=== PATIENT | female | born 2000 | race Caucasian/White ===

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

== ENCOUNTER 2022-03-07 16:31 | Emergency (ER) | payer MEDICAID, SELFPAY ==
[2022-03-07 16:54] VITALS: BP 93/60; PULSE 126; RESP 16; TEMP 38.6; O2SAT 95; BMI 30.9
--- NOTE | 2022-03-07 18:16 | XRR_ITS ---
PROCEDURE INFORMATION: Exam: XR Chest Exam date and time: 03/07/2022 6:20 PM Age: 22 years old Clinical indication: Fever TECHNIQUE: Imaging protocol: Radiologic exam of the chest. Views: 1 view. COMPARISON: CR XR chest 2V* [id number] 03/10/2021 12:14 AM FINDINGS: Lungs: Unremarkable. No consolidation. Pleural spaces: Unremarkable. No pleural effusion. No pneumothorax. Heart/Mediastinum: Unremarkable. No cardiomegaly. Bones/joints: Unremarkable. XR/XR chest 1V portable [id number] IMPRESSION: No acute findings.
--- NOTE | 2022-03-07 18:17 | W.ED.GENADLT ---
HPI - General Adult General: Chief complaint: General Medical Stated complaint: strip throat, weakness Time Seen by Provider: 03/07/22 18:09 Source: patient Mode of arrival: ambulatory Limitations: no limitations History of Present Illness: 22-year-old female who states that she has had cough fever sore throat over the last 3 days. She is febrile here 1-1.5 should not take any meds for fever she states she had some mild shortness of breath as well. Denies any dysuria denies any vomiting or diarrhea she denies any worsening improving factors. Associated symptoms: Deny chest pain, headache(s), nausea, rash or vomiting Review of Systems Const: Reports: fever(s), chills and body aches Eyes: Denies: blurry vision or eye discomfort ENMT: Reports: throat pain Card: Denies: chest pain Resp: Reports: non-productive cough GI: Denies: abdominal pain, nausea, vomiting or diarrhea : Denies: dysuria Musc: Denies: neck pain or back pain Skin/Breast: Denies: rash Neuro: Denies: headache(s) Psych: Denies: depression Marino/Lymph: Denies: easy bruising All/Imm: Denies: urticaria PFSH ED PFSH: Surgical History Status post laparoscopic cholecystectomy (10/07/20) Social History Second hand smoke exposure: No Alcohol intake: never Desire information about alcohol rehabilitation?: No Desire information about substance/drug rehabilitation?: No Female Reproductive History: Date of last menstrual period: 04/15/19 Physical Exam Const: COMMON NORMALS: no acute distress, patient oriented x3 and healthy appearing HENMT: COMMON NORMALS: normocephalic and atraumatic HEAD & SCALP: normocephalic and atraumatic MOUTH: Normal oral and palatal mucosa present THROAT: posterior oropharynx normal, tonsils normal and uvula midline Eye: COMMON NORMALS: Equal, round and reactive pupils present and EOMs intact bilaterally PUPIL: Yes Equal, round and reactive pupils present Neck/C-Spine: COMMON NORMALS: full ROM and supple Chest: COMMONS NORMALS: normal inspection of the chest and normal palpation of entire chest wall Resp: COMMON NORMALS: normal respiratory effort, No retractions, No use of accessory muscles and clear to auscultation bilaterally AUSCULTATION: clear to auscultation bilaterally Cardio: COMMON NORMALS: regular rate, regular rhythm and No murmurs present (Cardio) RATE: regular rate RHYTHM: regular rhythm GI: COMMON NORMALS: Normal to inspection, nondistended, normoactive bowel sounds present, Soft to palpation, non-tender and no masses PALPATION: Yes Soft to palpation Extremity: COMMON NORMALS: normal to inspection and full ROM Neuro: COMMON NORMALS: patient oriented x3, moves all extremities and no focal motor deficits Psych: COMMON NORMALS: mental status grossly normal, Normal thought process present and cooperative THOUGHT PROCESS: Normal thought process present Skin: COMMON NORMALS: no rashes or lesions noted and no wounds GENERAL SKIN EXAM: no rashes or lesions noted Course Vital Signs: Vital signs: Vital Signs Temperature 101.5 F H 03/07/22 16:54 Pulse Rate 96 03/07/22 19:20 Respiratory Rate 18 03/07/22 19:20 Blood Pressure 119/73 03/07/22 19:20 Pulse Oximetry 94 03/07/22 19:20 Oxygen Delivery Me thod 03/07/22 19:20 MDM - General Adult Medical Decision Making Patient presents here with cough fever loss of throat patient did test positive for the flu. She is well-appearing here she has no throat swelling x-ray is clear she is stable for discharge. Lab Data 03/07/22 18:37 03/07/22 18:37 Radiology Impressions Chest X-Ray 03/07/22 18:16 IMPRESSION: No acute findings. Laboratory Results WBC 11.1 10^3/uL (4.5-13.0) 03/07/22 18:37 RBC 5.63 10^6/uL (4.1-5.3) H 03/07/22 18:37 Hgb 14.3 g/dL (11.5-15.3) 03/07/22 18:37 Hct 44.9 % (37.0-47.0) 03/07/22 18:37 MCV 79.8 fl (81-99) L 03/07/22 18:37 MCH 25.4 pg (28.0-34.0) L 03/07/22 18:37 MCHC 31.8 g/dL (30.0-36.0) 03/07/22 18:37 RDW 12.1 % (12.1-15.1) 03/07/22 18:37 Plt Count 152 10^3/cmm (130-400) 03/07/22 18:37 MPV 11.0 fL (7.4-10.4) H 03/07/22 18:37 Neut % (Auto) 84.0 % 03/07/22 18:37 Lymph % (Auto) 5.7 % 03/07/22 18:37 [place] % (Auto) 9.6 % 03/07/22 18:37 Eos % (Auto) 0.0 % 03/07/22 18:37 Baso % (Auto) 0.3 % 03/07/22 18:37 Neut # (Auto) 9.32 10^3/uL (1.8-8.0) H 03/07/22 18:37 Lymph # (Auto) 0.6 10^3/uL (1.5-6.5) L 03/07/22 18:37 [place] # (Auto) 1.1 10^3/uL (0.2-0.9) H 03/07/22 18:37 Eos # (Auto) 0.0 10^3/uL (0.0-0.8) 03/07/22 18:37 Baso # (Auto) 0.0 10^3/uL (0.0-0.1) 03/07/22 18:37 Nucleated RBC % (auto) 0 % 03/07/22 18:37 Nucleated RBCs # 0.0 /100WBC 03/07/22 18:37 Sodium 128 mmol/L (136-145) L 03/07/22 18:37 Potassium 3.3 mmol/L (3.5-5.1) L 03/07/22 18:37 Chloride 95 mmol/L (98-107) L 03/07/22 18:37 Carbon Dioxide 21 mmol/L (22-29) L 03/07/22 18:37 Anion Gap 15.3 (5-19) 03/07/22 18:37 BUN 13 mg/dL (6-20) 03/07/22 18:37 Creatinine 0.8 mg/dL (0.5-0.9) 12/12/22 18:37 GFR Calculation 91.4 mL/min (90-130) 03/07/22 18:37 Glucose 120 mg/dL (65-115) H 03/07/22 18:37 Calculated Osmolality 267 mOsm/kg (285-295) L 03/07/22 18:37 Calcium 9.1 mg/dL (8.5-10.5) 03/07/22 18:37 Total Bilirubin 0.7 mg/dL (0.15-1.2) 03/07/22 18:37 AST 19 U/L (0-32) 03/07/22 18:37 ALT 15 U/L (0-33) 03/07/22 18:37 Alkaline Phosphatase 88 U/L (35-105) 03/07/22 18:37 Total Protein 7.4 g/dL (6.6-8.7) 03/07/22 18:37 Albumin 4.1 g/dL (3.5-5.2) 03/07/22 18:37 Globulin 3.3 g/dL (1.3-4.6) 03/07/22 18:37 Influenza Type A Ag Positive (Negative) H 03/07/22 18:37 Influenza Type B Ag Negative (Negative) 03/07/22 18:37 SARS-CoV-2 Ag (Rapid) Negative (Negative) 03/07/22 18:37 Group A Strep Rapid Negative (Negative) 03/07/22 18:37 Discharge Plan Discharge Patient Disposition: Home Clinical Impression: Influenza Condition: Stable Prescriptions: No Action ondansetron 4 mg tablet,disintegrating 4 mg PO Q8H PRN (Reason: nausea and vomiting) 7 Days Qty: 21 0RF Mirena 20 mcg/24 hours (6 yrs) 52 mg Intrauterine Device See Rx Instructions .ROUTE .COMPLEX Rx Instructions: intrauterinely DIRECTED diclofenac sodium 75 mg tablet,delayed release (DR/EC) 75 mg PO BID Qty: 20 0RF Discharge Orders: Discharge ED (Routine); Ordered 03/07/22 Ordered By: Sameera Soares Referrals: Sharif Sumner MD [Primary Care Provider] - 1-3 days Discharge Diet: Advance as tolerated Discharge Activity: Resume usual activity Patient Instructions: Influenza (ED) Coding Level of Care Code ED Retention Specialist for Chg Fwd Exam Comprehensive
[2022-03-07 18:27] VITALS: BP 99/86; PULSE 102; RESP 18; O2SAT 95
[2022-03-07] MEDS: sodium chloride 0.9% 1,000 ML 999 ML IV (18:31)
[2022-03-07] MEDS: ketorolac 30 mg/mL INJ IVP (18:31)
[2022-03-07 18:58] LABS: Rapid Strep A Test Negative (Negative)
[2022-03-07 19:00] LABS: Basophils % 0.3 %; Hematocrit 44.9 % (37.0-47.0); Hemoglobin 14.3 g/dL (11.5-15.3); Lymphocytes # 0.6 10^3/uL (1.5-6.5); Lymphocytes % 5.7 %; Mean Corpuscular HGB Conc 31.8 g/dL (30.0-36.0); Mean Corpuscular Hemoglobin 25.4 pg (28.0-34.0); Mean Corpuscular Volume 79.8 fl (81-99); Monocytes # 1.1 10^3/uL (0.2-0.9); Monocytes % 9.6 %; Neutrophils # 9.32 10^3/uL (1.8-8.0); Nucleated Red Blood Cells % 0 %; Platelet Count 152 10^3/cmm (130-400); Red Blood Count 5.63 10^6/uL (4.1-5.3); Red Cell Distribution Width 12.1 % (12.1-15.1); White Blood Count 11.1 10^3/uL (4.5-13.0)
[2022-03-07 19:01] LABS: Influenza A by IFA Positive (Negative); Influenza B by IFA Negative (Negative)
[2022-03-07 19:04] LABS: SARS Covid-2 Antigen Negative (Negative)
[2022-03-07 19:05] LABS: Alanine Aminotransferase 15 U/L (0-33); Albumin Level 4.1 g/dL (3.5-5.2); Alkaline Phosphatase 88 U/L (35-105); Anion Gap 15.3 (5-19); Aspartate Amino Transferase 19 U/L (0-32); Blood Urea Nitrogen 13 mg/dL (6-20); Calcium 9.1 mg/dL (8.5-10.5); Carbon Dioxide 21 mmol/L (22-29); Chloride 95 mmol/L (98-107); Globulin 3.3 g/dL (1.3-4.6); Glomerular Filtration Rate 91.4 mL/min (90-130); Glucose 120 mg/dL (65-115); Osmolality Calculated 267 mOsm/kg (285-295); Potassium 3.3 mmol/L (3.5-5.1); Sodium 128 mmol/L (136-145); Total Bilirubin 0.7 mg/dL (0.15-1.2); Total Protein 7.4 g/dL (6.6-8.7)
[2022-03-07 19:20] VITALS: BP 119/73; PULSE 96; RESP 18; O2SAT 94
== END 2022-03-07 20:06 | disposition home or self-care (01) ==
PROVIDERS: Physician Assistant; Emergency Provider Emergency Medicine; PCP Family Medicine
DX: J11.1 Influenza due to unidentified influenza virus with other respiratory manifestations (principal); Z20.822 Contact with and (suspected) exposure to COVID-19
CPT/HCPCS: 71045; 80053; 85025; 87081; 87426; 87804; 87880; 96361; 96374; 99284; J1885; J7030

== ENCOUNTER 2022-05-03 22:34 | Emergency (ER) | payer OTHER, SELFPAY ==
[2022-05-03 22:58] VITALS: BP 123/82; PULSE 78; RESP 17; TEMP 36.7; O2SAT 99; BMI 31.8
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
== END 2022-05-03 23:30 | disposition home or self-care (01) ==
PROVIDERS: Emergency Provider Emergency Medicine; PCP Family Medicine
DX: O9A.211 Injury, poisoning and certain other consequences of external causes complicating pregnancy, first trimester (principal); S30.1XXA Contusion of abdominal wall, initial encounter; Z3A.01 Less than 8 weeks gestation of pregnancy; Y04.2XXA Assault by strike against or bumped into by another person, initial encounter; O99.331 Smoking (tobacco) complicating pregnancy, first trimester; F17.210 Nicotine dependence, cigarettes, uncomplicated; Y99.0 Civilian activity done for income or pay
CPT/HCPCS: 99283

== ENCOUNTER → 2022-08-17 10:43 | Outpatient (BNVA) | payer MEDICAID, SELFPAY | PROVIDERS: PCP Family Medicine; Visit Provider Obstetrics & Gynecology | DX: Z34.82 Encounter for supervision of other normal pregnancy, second trimester (principal); Z3A.00 Weeks of gestation of pregnancy not specified | CPT/HCPCS: 81000 ==

== ENCOUNTER 2022-08-26 14:37 | Outpatient (CLI) | payer MEDICAID, SELFPAY ==
--- NOTE | 2022-08-26 | US_ITS ---
WS: [id number] ULTRASOUND OB COMPLETE TECHNIQUE: Complete ultrasound. CLINICAL INFORMATION: ANATOMY COMPARISON: None. FINDINGS: Cervix is long and closed measuring 3.2 cm Single interuterine gestation is identified with vertex presentation. Placenta is anterior and posterior fundal. Placenta grade 0. Normal amniotic fluid volume. cardiac activity: 150 BPM. AGA: 23 weeks 0 days KATELYNN by ultrasound: December 23, 2022 Estimated weight: 553 g; 1 lb. 4 oz. BDP: 5.5 cm = 22 weeks 6 days HC: 20.7 cm = 22 weeks 6 days AC: 18.3 cm = 23 weeks 1 day FEMUR LENGTH: 3.9 cm = 22 weeks 6 days HUMERAL LENGTH: 3.9 cm = 23 weeks 4 days Anatomic survey: profile, nose, and lips not visualized due to position. Anatomic survey is otherwise normal. Normal stomach. Kidneys and bladder are normal. Normal 3 vessel cord. Normal 3 vessel cord insertion. Normal 4 chamber heart. Normal spine. Intracranial contents are normal. Normal posterior fossa and cisterna magna. US/US OB >= 14 weeks fetus [id number] IMPRESSION: 1. Single intrauterine with visualized cardiac activity. AGA 23 week s 0 days with KATELYNN December 23, 2022. 2. Cervix is long and closed. 3. Placenta is fundal. No evidence of abruption or previa. 4. profile, nose, and lips not visualized due to position. Conside r follow-up for additional attempt 5. anatomic survey is otherwise normal. 6. Normal amniotic fluid volume.
== END 2022-08-26 14:38 | disposition home or self-care (01) ==
PROVIDERS: PCP Family Medicine; Visit Provider Obstetrics & Gynecology
DX: Z34.82 Encounter for supervision of other normal pregnancy, second trimester (principal); Z3A.23 23 weeks gestation of pregnancy
CPT/HCPCS: 76805

== ENCOUNTER → 2022-09-14 09:45 | Outpatient (BNVA) | payer MEDICAID, SELFPAY | PROVIDERS: PCP Family Medicine; Visit Provider Obstetrics & Gynecology | DX: Z34.90 Encounter for supervision of normal pregnancy, unspecified, unspecified trimester (principal) | CPT/HCPCS: 80307; 81000; 82950; 85027; 86592; 86762; 86803; 86850; 86900; 87086; 87340; 87806 ==

== ENCOUNTER → 2022-09-28 14:37 | Outpatient (BNVA) | payer MEDICAID, SELFPAY | PROVIDERS: PCP Family Medicine; Visit Provider Obstetrics & Gynecology | DX: Z34.80 Encounter for supervision of other normal pregnancy, unspecified trimester (principal); Z3A.00 Weeks of gestation of pregnancy not specified | CPT/HCPCS: 81000 ==

== ENCOUNTER → 2022-10-12 16:20 | Outpatient (BNVA) | payer MEDICAID, SELFPAY | PROVIDERS: PCP Family Medicine; Visit Provider Obstetrics & Gynecology | DX: Z34.80 Encounter for supervision of other normal pregnancy, unspecified trimester (principal); Z3A.00 Weeks of gestation of pregnancy not specified | CPT/HCPCS: 81000 ==

== ENCOUNTER 2022-10-16 19:05 | Outpatient (CLI) | payer MEDICAID, SELFPAY ==
[2022-10-16] VITALS (41 sets, daily range): BP systolic 107–126; BP diastolic 63–81; PULSE 72–95; RESP 16; TEMP 35.9; O2SAT 96–99; BMI 37.2
[2022-10-16 19:48] LABS: Bilirubin Urine 1+ (Negative); Blood Urine Neg (Negative); Glucose Urine UA Norm (Normal); Ketones Urine 2+ (Negative); Leukocyte Esterase Urine Trace (Negative); Nitrate Urine Negative (Negative); Protein Urine Trace (Negative); Urine Appearance Cloudy (CLEAR); Urine Color Yellow (Yellow); Urobilinogen Urine 1 mg/dL (Negative); pH Urine 5 (5-7)
[2022-10-16 19:50] LABS: Bacteria Urine 1+ /hpf; RBC Urine 0-4 /hpf (0-2)
[2022-10-16 20:59] LABS: Basophils % 0.1 %; Eosinophils # 0.1 10^3/uL (0.0-0.8); Eosinophils % 0.6 %; Hemoglobin 12.1 g/dL (11.5-15.3); Lymphocytes % 20.5 %; Mean Corpuscular HGB Conc 31.8 g/dL (30.0-36.0); Mean Corpuscular Hemoglobin 25.4 pg (28.0-34.0); Mean Corpuscular Volume 79.7 fl (81-99); Mean Platelet Volume 10.1 fL (7.4-10.4); Monocytes # 0.4 10^3/uL (0.2-0.9); Monocytes % 3.9 %; Neutrophils % 74.6 %; Nucleated Red Blood Cells % 0 %; Platelet Count 198 10^3/cmm (130-400); Red Blood Count 4.77 10^6/uL (4.1-5.3); Red Cell Distribution Width 12.4 % (12.1-15.1); White Blood Count 9.9 10^3/uL (4.5-13.0)
[2022-10-16] MEDS: aluminum-mag hydrox-simethicon 30 ML, sucralfate oral liq 1 GM PO (21:01)
[2022-10-16 21:14] LABS: Alanine Aminotransferase 16 U/L (0-33); Albumin Level 3.3 g/dL (3.5-5.2); Alkaline Phosphatase 155 U/L (35-105); Anion Gap 14.6 (5-19); Aspartate Amino Transferase 13 U/L (0-32); Blood Urea Nitrogen 5 mg/dL (6-20); Calcium 8.6 mg/dL (8.5-10.5); Carbon Dioxide 22 mmol/L (22-29); Chloride 101 mmol/L (98-107); Globulin 2.9 g/dL (1.3-4.6); Glomerular Filtration Rate 157.3 mL/min (90-130); Glucose 96 mg/dL (65-115); Osmolality Calculated 275 mOsm/kg (285-295); Potassium 3.6 mmol/L (3.5-5.1); Sodium 134 mmol/L (136-145); Total Bilirubin 0.3 mg/dL (0.15-1.2); Total Protein 6.2 g/dL (6.6-8.7)
[2022-10-16] MEDS: lactated ringers 1,000 ML 999 ML IV (22:01)
== END 2022-10-16 23:03 | disposition home or self-care (01) ==
LOC: OPOB 19:09 → OBGYN 19:14
PROVIDERS: PCP Family Medicine; Visit Provider Obstetrics & Gynecology
DX: O26.899 Other specified pregnancy related conditions, unspecified trimester (principal); R10.9 Unspecified abdominal pain; Z3A.00 Weeks of gestation of pregnancy not specified
CPT/HCPCS: 36415; 59025; 80053; 81001; 85025; 99211; J7120

== ENCOUNTER → 2022-11-09 10:39 | Outpatient (BNVA) | payer MEDICAID, SELFPAY | PROVIDERS: PCP Family Medicine; Visit Provider Obstetrics & Gynecology | DX: Z34.80 Encounter for supervision of other normal pregnancy, unspecified trimester (principal); Z3A.00 Weeks of gestation of pregnancy not specified | CPT/HCPCS: 81000 ==

== ENCOUNTER → 2022-11-16 09:36 | Outpatient (BNVA) | payer MEDICAID, SELFPAY | PROVIDERS: PCP Family Medicine; Visit Provider Obstetrics & Gynecology | DX: Z34.93 Encounter for supervision of normal pregnancy, unspecified, third trimester (principal); Z3A.36 36 weeks gestation of pregnancy | CPT/HCPCS: 76816 ==

== ENCOUNTER → 2022-11-23 10:00 | Outpatient (BNVA) | payer MEDICAID, SELFPAY | PROVIDERS: PCP Family Medicine; Visit Provider Obstetrics & Gynecology | DX: Z34.80 Encounter for supervision of other normal pregnancy, unspecified trimester (principal); Z3A.00 Weeks of gestation of pregnancy not specified | CPT/HCPCS: 81000; 87081 ==

== ENCOUNTER → 2022-11-30 09:36 | Outpatient (BNVA) | payer MEDICAID, SELFPAY | PROVIDERS: PCP Family Medicine; Visit Provider Nurse Practitioner Women's Health | DX: Z34.80 Encounter for supervision of other normal pregnancy, unspecified trimester (principal) | CPT/HCPCS: 81000 ==

== ENCOUNTER → 2022-12-07 09:11 | Outpatient (BNVA) | payer MEDICAID, SELFPAY | PROVIDERS: PCP Family Medicine; Visit Provider Obstetrics & Gynecology | DX: Z34.80 Encounter for supervision of other normal pregnancy, unspecified trimester (principal) | CPT/HCPCS: 81000 ==

== ENCOUNTER 2022-12-14 07:19 | Inpatient (IN) | payer MEDICAID, SELFPAY ==
[2022-12-14] VITALS (65 sets, daily range): BP systolic 104–136; BP diastolic 55–90; PULSE 52–98; TEMP 35.9–36.6; O2SAT 97–99; BMI 39.8
[2022-12-14 08:43] LABS: Basophils % 0.3 %; Eosinophils # 0.1 10^3/uL (0.0-0.8); Eosinophils % 0.9 %; Lymphocytes # 2.2 10^3/uL (1.5-6.5); Mean Corpuscular HGB Conc 30.9 g/dL (30-55); Mean Corpuscular Hemoglobin 23.2 pg (27-33); Mean Corpuscular Volume 75.3 fl (85-98); Monocytes # 0.4 10^3/uL (0.2-0.9); Monocytes % 4.6 %; Neutrophils # 6.73 10^3/uL (1.8-8.0); Neutrophils % 70.9 %; Nucleated Red Blood Cells % 0 %; Platelet Count 218 10^3/cmm (157-399); Red Blood Count 4.65 10^6/uL (3.85-5.65); Red Cell Distribution Width 13.4 % (12.1-15.1); White Blood Count 9.51 10^3/uL (4.5-13.0)
[2022-12-14] MEDS: dextrose 5%-lactated ringers 1,000 ML 125 ML IV ×2 (08:44→21:33)
[2022-12-14] MEDS: oxytocin 30 UNIT/500 ML BAG IV (08:54)
--- NOTE | 2022-12-14 09:15 | PM.OBGYHP ---
Providers/Chief Complaint Admitting Physician: Edy Campoverde MD Primary Care Provider: Sharif Sumner MD Chief Complaint: IOL HPI ROLL ON MAN History of Present Illness 22 y.o. EDC December 21, 2022 by LMP, c/w early ultrasound done at [facility] At 39 w 0 d No complications Admitted for elective induction of labor No c/o + active movements POBHx: x two, uncomplicated; 4 and 6 y.o. PMHx: none PSHx: laparoscopic cholecystectomy Meds: vitamins NKDA Present Details : 3 Para: 2 Labs Rubella: Non-Immune RPR: Negative GBS: Negative Medications/Allergies Home Medications Medication Instructions Recorded Confirmed Last Taken Type docosahexaenoic acid 200 mg 1 mg PO DAILY 08/16/22 12/14/22 12/12/22 07:00 History capsule ( DHA) bupropion HCl 100 mg tablet,12 hr 100 mg PO DAILY #30 tabs 11/21/22 12/14/22 12/12/22 07:00 Rx sustained-release (Wellbutrin SR) Allergies Allergy/AdvReac Type Severity Reaction Status Date / Time No Known Allergies Allergy Verified 12/07/22 09:06 PFSH ROLL ON MAN PFSH: Surgical History Status post laparoscopic cholecystectomy (10/07/20) Family History Grandmother Ovarian cancer maternal Mother Thyroid condition Stroke TIA - unsure Father Hypertension Grandfather Diabetes maternal Denies family history of Colon cancer Heart disease Hyperlipidemia Breast cancer History History History 3 Term 2 0 Miscarriages/Ectopic 0 Living Children 2 Care KATELYNN Calculator Estimated Delivery Date Method Current WG Current Estimate 12/21/22 Manual 39w 1d Other Estimates 12/23/22 Ultrasound #1 38w 6d Vitals/I&O/Wt Last Vital Signs Temp 97.9 F 12/14/22 20:05 Pulse 70 12/15/22 01:16 BP 137/68 12/15/22 01:16 Pulse Ox 99 12/14/22 15:54 O2 Del Method Room Air 12/14/22 07:49 12/14/22 12/14/22 12/15/22 14:59 22:59 06:59 Intake Total 52.884 / 52.884 2213 / 2265.884 Balance 52.884 / 52.884 2213 / 2265.884 Weight last 48 hrs Weight 232 lb Physical Exam Narrative: Weight 231 lbs; 5?4? VS normal Comfortable, alert, oriented HEENT: normal Lungs: clear Cor: RRR FH 38 cm, cephalic FHTs normal Cx: 2 cm / 50% / -3 / posterior Ext: normal External monitor: heart tracing good variability, + accelerations Urinary Catheter Management: Lopez: Cath Placed During This Visit: yes Reason for Continuing Indwelling Catheter: Accurate Measurement of Urinary Output in Critically Ill Patients Urinary Catheter Date of Insertion: 12/14/22 Urinary Catheter Time of Insertion: 16:35 Data 12/14/22 08:20 Other data: 1-h glucola 09-14-22 89 GBS 11-23-22 negative A&P Assessment and plan (1) Supervision of other normal : 39 w 0 d (2) Elective induction of labor planned: Patient requests IOL Admitted for elective labor induction Fetus reassuring Plan start pitocin Attestations Medical Necessity Statement*: patient at 39 weeks admitted for labor induction Coding Level of Care Code Acute Code for Chg Fwd Diagnoses Supervision of other normal Z34.80 Elective induction of labor planned Time Spent (min) 20
[2022-12-14] MEDS: lactated ringers 1,000 ML 999 ML IV ×2 (14:28→15:57)
[2022-12-14] MEDS: ROPivacaine syringe 100 MG/50 ML SYRINGE 10 MG EPIDURAL ×2 (15:54→20:01)
--- NOTE | 2022-12-14 16:21 | ANES.PREANE2 ---
Pre-Anesthetic Assessment Height/Weight: Height 1.63 m Weight 105.233 kg Temp Pulse BP Pulse Ox O2 Del Method 96.6 F L 67 117/74 99 Room Air 12/14/22 09:19 12/14/22 16:16 12/14/22 16:16 12/14/22 15:54 12/14/22 07:49 Was Beta Charlie taken within 24 hours: N/A Was Clonidine taken within 24 hours: N/A Social Tobacco Exam alert, oriented x 3, clear to auscultation bilaterally and regular rate & rhythm Airway Submandibular: within normal limits Cervical ROM: within normal limits Mallampati: Class III History/ROS No significant history except as noted and No significant complaints Neuropsych Anxiety Anesthetic Plan ASA status: 2 Anesthesia: Eval. for regional block Risk of > 500 ml blood loss (7ml/kg in children): No Medications/Allergies Home Medications Medication Instructions Recorded Confirmed Last Taken Type docosahexaenoic acid 200 mg 1 mg PO DAILY 08/16/22 12/14/22 12/12/22 07:00 History capsule ( DHA) bupropion HCl 100 mg tablet,12 hr 100 mg PO DAILY #30 tabs 11/21/22 12/14/22 12/12/22 07:00 Rx sustained-release (Wellbutrin SR) Allergies Allergy/AdvReac Type Severity Reaction Status Date / Time No Known Allergies Allergy Verified 12/07/22 09:06 Current Medications Generic Name Dose Route Start Last Admin Trade Name Freq PRN Reason Stop Dose Admin Dextrose/Lactated Ringer's 1,000 mls @ 125 mls/hr 12/14/22 07:45 12/14/22 16:12 Dextrose 5%-Lactated Ringers IV 0 mls/hr .Q8H MICHELL Infusion Oxytocin 30 unit in 500 mls @ 1 mls/hr 12/14/22 07:45 12/14/22 14:15 Pitocin IV 20 milliunit/min .Q24H MICHELL 20 mls/hr Titration Protocol 1 MILLIUNIT/MIN Lactated Ringer's 1,000 mls @ 999 mls/hr 12/14/22 14:19 12/14/22 16:13 Lactated Ringers IV 125 mls/hr .Q1H1M PRN Infusion See label comments Ropivacaine 100 mg in 50 mls @ 10 mls/hr 12/14/22 14:30 12/14/22 15:54 Naropin Syringe EPIDURAL 10 mls/hr .Q5H MICHELL Administration PFSH Anesthesia Surgical History Status post laparoscopic cholecystectomy (10/07/20) Family History Grandmother Ovarian cancer maternal Mother Thyroid condition Stroke TIA - unsure Father Hypertension Grandfather Diabetes maternal Denies family history of Colon cancer Heart disease Hyperlipidemia Breast cancer Female Reproductive History : 3 Data Anesthesia 12/14/22 08:20 Short CBC 12/14/22 Range/Units 08:20 WBC 9.51 (4.5-13.0) 10^3/uL Hgb 10.80 L (12.4-14.8) g/dL Hct 35.0 L (36-47) % MCV 75.3 L (85-98) fl Plt Count 218 (157-399) 10^3/cmm Neut % (Auto) 70.9 % Neut # (Auto) 6.73 (1.8-8.0) 10^3/uL Cardiac Studies: No Data to Display
--- NOTE | 2022-12-14 16:22 | P.ANES_ITS ---
Anesthesia Procedures Procedure/Date: 12/14/22 Epidural: Time Out Performed: Yes Consents Signed: Procedure Consent Consent: from patient, risks and benefits reviewed and patient agrees to proceed Lumbar Level: L4-L5 Epidural position: sitting Epidural procedure: sterile prep of area, 1% lidocaine to numb the area, 18 g needle, neg for parest hesia, test dose given, 1.5% xylocaine 1:200k epi, 0.2% Ropivacaine bolus ml (7), placed PCEA, no systemic response, sterile dressing applied, L.U.D. no apparent complications and 0.2% Ropiavacaine @ mls/hr (10) Additional Comments: Daisha CONSTANTINO @ 7cm. Catheter advanced easily, secured at 14 cm. No complications.
--- NOTE | 2022-12-14 20:40 | PM.OBGYPN ---
ASSURANCE ANALYST Subjective Subjective: Interval history: Fetus reassuring Comfortable with epidural Cx: 4-5 cm / 50% / -2 / posterior AROM, clear fluid Pitocin at 20 mU Labor: Station: +2 Amniotic Membrane Status: Ruptured Monitor Mode: External Contraction Pattern: Regular Status: Category I Vitals/I&O/Wt Last Vital Signs Temp 97.9 F 12/14/22 20:05 Pulse 70 12/15/22 01:16 BP 137/68 12/15/22 01:16 Pulse Ox 99 12/14/22 15:54 O2 Del Method Room Air 12/14/22 07:49 12/14/22 12/14/22 12/15/22 14:59 22:59 06:59 Intake Total 52.884 / 52.884 2213 / 2265.884 Balance 52.884 / 52.884 2213 / 2265.884 Weight last 48 hrs Weight 232 lb Physical Exam Urinary Catheter Management: Lopez: Cath Placed During This Visit: yes Reason for Continuing Indwelling Catheter: Accurate Measurement of Urinary Output in Critically Ill Patients Urinary Catheter Date of Insertion: 12/14/22 Urinary Catheter Time of Insertion: 16:35 Data 12/14/22 08:20 A&P Assessment and plan (1) Supervision of other normal : (2) Elective induction of labor planned: Cx: at 4-5 cm AROM continue pitocin Attestations Medical Necessity Statement*: patient at 39 weeks, admitted for labor induction Coding Level of Care Code Acute Code for Chg Fwd Diagnoses Supervision of other normal Z34.80 Elective induction of labor planned Time Spent (min) 15
[2022-12-15] VITALS (16 sets, daily range): BP systolic 108–154; BP diastolic 56–78; PULSE 60–81; RESP 15–18; TEMP 36.6–37.2; O2SAT 96–99
--- NOTE | 2022-12-15 00:10 | P.PN_ITS ---
CUSTOMER ACCOUNTS ADVISOR Subjective Subjective: Interval history: December 15, 2022, 0010 DELIVERY NOTE , vigorous male infant Normal placenta and cord Cord gases and blood obtained No episiotomy or lacerations EBL: 300 cc No complications Labor: Station: +2 Amniotic Membrane Status: Ruptured Monitor Mode: External Contraction Pattern: Regular Status: Category I Vitals/I&O/Wt Last Vital Signs Temp 97.9 F 12/14/22 20:05 Pulse 70 12/15/22 01:16 BP 137/68 12/15/22 01:16 Pulse Ox 99 12/14/22 15:54 O2 Del Method Room Air 12/14/22 07:49 12/14/22 12/14/22 12/15/22 14:59 22:59 06:59 Intake Total 52.884 / 52.884 2213 / 2265.884 Balance 52.884 / 52.884 2213 / 2265.884 Weight last 48 hrs Weight 232 lb Physical Exam Urinary Catheter Management: Lopez: Cath Placed During This Visit: yes Reason for Continuing Indwelling Catheter: Accurate Measurement of Urinary Output in Critically Ill Patients Urinary Catheter Date of Insertion: 12/14/22 Urinary Catheter Time of Insertion: 16:35 Data 12/14/22 08:20 A&P Assessment and plan (1) Vaginal delivery: s/p care Attestations Medical Necessity Statement*: patient s/p Coding Level of Care Code Acute Code for Chg Fwd Diagnoses Vaginal delivery O80 Time Spent (min) 45
--- NOTE | 2022-12-15 00:10 | PM.DELIVERY ---
Delivery Note: Date of delivery: December 15, 2022 Pre-delivery diagnoses: 39 w 0 d admitted for elective induction of labor Post-delivery diagnoses: same Vaginal delivery Procedure: Labor induction Vaginal delivery Op report anesthesia: Epidural Delivering Physician: Edy Campoverde MD Estimated blood loss (mL): 300 Findings: vigorous male normal placenta and cord cord gases and blood obtained no episiotomy or lacerations Delivery: vaginal delivery Post-Delivery Status: stable History History History 3 Term 2 0 Miscarriages/Ectopic 0 Living Children 2 A&P Assessment and plan (1) Vaginal delivery: plan routine care Coding Level of Care Code Acute Code for Chg Fwd Diagnoses Vaginal delivery O80 Time Spent (min) 45
[2022-12-15] MEDS: oxytocin 30 UNIT/500 ML BAG 60 UNIT IV (00:58)
[2022-12-15] MEDS: acetaminophen 325 mg Tablet 650 MG PO (02:49)
[2022-12-15] MEDS: docusate sodium 100 mg Capsule PO ×2 (09:34→21:22)
[2022-12-15] MEDS: ibuprofen 800 mg tablet PO ×3 (09:34→21:22)
[2022-12-15] MEDS: prenatal vitamin Capsule 1 CAP PO (09:34)
[2022-12-15 13:12] LABS: Hematocrit 36.2 % (36-47); Mean Corpuscular HGB Conc 31.5 g/dL (30-55); Mean Corpuscular Hemoglobin 23.9 pg (27-33); Mean Corpuscular Volume 75.9 fl (85-98); Mean Platelet Volume 10.9 fL (7.4-10.4); Platelet Count 204 10^3/cmm (157-399); Red Blood Count 4.77 10^6/uL (3.85-5.65); Red Cell Distribution Width 13.4 % (12.1-15.1); White Blood Count 12.36 10^3/uL (4.5-13.0)
[2022-12-16 05:19] VITALS: BP 118/71; PULSE 68; RESP 18; TEMP 36.4; O2SAT 96
[2022-12-16] MEDS: ibuprofen 800 mg tablet PO (10:32)
[2022-12-16] MEDS: docusate sodium 100 mg Capsule PO (10:32)
[2022-12-16] MEDS: prenatal vitamin Capsule 1 CAP PO (10:32)
--- NOTE | 2022-12-16 12:20 | P.PN_ITS ---
CARBON DIOXIDE OPERATOR Subjective Subjective: Interval history: no c/o no bleeding, pain eating, voiding, ambulating well caring for without any problems Labor: Station: +2 Amniotic Membrane Status: Ruptured Monitor Mode: External Contraction Pattern: Regular Status: Category I Vitals/I&O/Wt Last Vital Signs Temp 97.6 F 12/16/22 05:19 Pulse 68 12/16/22 05:19 Resp 18 12/16/22 05:19 BP 118/71 12/16/22 05:19 Pulse Ox 96 12/16/22 05:19 O2 Del Method Room Air 12/16/22 05:19 Physical Exam Const: COMMON NORMALS: no acute distress, average body habitus, patient oriented x3, healthy appearing and alert Resp: COMMON NORMALS: normal respiratory effort and clear to auscultation bilaterally AUSCULTATION: clear to auscultation bilaterally Cardio: COMMON NORMALS: regular rate and regular rhythm RATE: regular rate RHYTHM: regular rhythm GI: COMMON NORMALS: Normal to inspection, nondistended, normoactive bowel sounds present, Soft to palpation and non-tender PALPATION: Yes Soft to palpation Extremity: COMMON NORMALS: normal to inspection and no clubbing, cyanosis or edema Neuro: COMMON NORMALS: patient oriented x3 SENSORIUM/ORIENTATION: Yes alert Urinary Catheter Management: Lopez: Cath Placed During This Visit: yes, but has since been removed by the nurse Reason for Continuing Indwelling Catheter: Decision to DC Catheter Urinary Catheter Date of Insertion: 12/14/22 Urinary Catheter Time of Insertion: 16:35 Date Urinary Catheter Removed: 12/15/22 Time Urinary Catheter Discontinued: 00:05 Data 12/15/22 13:00 A&P Assessment and plan (1) Vaginal delivery: PPD #1? doing well ? discharge home today ? instructions and precautions given call/return if fever, chills, headache, blurry vision, nausea, vomiting, abdominal pain; vaginal bleeding or discharge; shortness of breath, chest pain, leg pains or swelling; inability to void, perineal pain or swelling; feelings of depression or mood changes; thoughts of suicide or harming others; inability to care for baby. f/u in 6 weeks or PRN Attestations Medical Necessity Statement*: patient s/p vaginal delivery, plan discharge home today Coding Level of Care Code Acute Code for Chg Fwd Diagnoses Vaginal delivery O80 Time Spent (min) 20
--- NOTE | 2022-12-16 12:23 | P.DS_ITS ---
Discharge Providers NURSING INFORMATICS CLINICAL ANALYST Date of Admission: 12/14/22 07:19 Date of Discharge: 12/16/22 Attending Provider at Admission: Edy Campoverde MD Attending Provider at Discharge: Edy Campoverde MD Consults: none Primary NURSING INFORMATICS CLINICAL ANALYST: Edy Campoverde MD Primary Care Provider: Sharif Sumner MD Diagnoses at Discharge Discharge Diagnosis (1) Vaginal delivery: Details from hospital stay: patient did well normal course Status: Acute Reason for Visit Reason for Visit: IOL Brief History: 22 y.o. EDC? December 21, 2022 by LMP, c/w early ultrasound done at [facility] At 39 w 0 d No complications Admitted for elective induction of labor Hospital Course Hospital Course patient underwent pitocin induction of labor had spontaneous vagina delivery no complications Information Peripartum Data: Infant Delivery Method: Vaginal Physical Exam Const: COMMON NORMALS: no acute distress, average body habitus, patient oriented x3, healthy appearing and alert Resp: COMMON NORMALS: normal respiratory effort, No use of accessory muscles and clear to auscultation bilaterally AUSCULTATION: clear to auscultation bilaterally Cardio: COMMON NORMALS: regular rate and regular rhythm RATE: regular rate RHYTHM: regular rhythm GI: COMMON NORMALS: Normal to inspection, nondistended, normoactive bowel sounds present, Soft to palpation and non-tender PALPATION: Yes Soft to palpation Extremity: COMMON NORMALS: normal to inspection and no clubbing, cyanosis or edema Neuro: COMMON NORMALS: patient oriented x3 SENSORIUM/ORIENTATION: Yes alert Urinary Catheter Management: Lopez: Cath Placed During This Visit: yes, but has since been removed by the nurse Reason for Continuing Indwelling Catheter: Decision to DC Catheter Urinary Catheter Date of Insertion: 12/14/22 Urinary Catheter Time of Insertion: 16:35 Date Urinary Catheter Removed: 12/15/22 Time Urinary Catheter Discontinued: 00:05 History History History 3 Term 2 0 Miscarriages/Ectopic 0 Living Children 2 Discharge Data Studies Completed and Pending Laboratory Results WBC 12.36 10^3/uL (4.5-13.0) 12/15/22 13:00 RBC 4.77 10^6/uL (3.85-5.65) 12/15/22 13:00 Hgb 11.40 g/dL (12.4-14.8) L 12/15/22 13:00 Hct 36.2 % (36-47) 12/15/22 13:00 MCV 75.9 fl (85-98) L 12/15/22 13:00 MCH 23.9 pg (27-33) L 12/15/22 13:00 MCHC 31.5 g/dL (30-55) 12/15/22 13:00 RDW 13.4 % (12.1-15.1) 12/15/22 13:00 Plt Count 204 10^3/cmm (157-399) 12/15/22 13:00 MPV 10.9 fL (7.4-10.4) H 12/15/22 13:00 Neut % (Auto) 70.9 % 12/14/22 08:20 Lymph % (Auto) 23.0 % 12/14/22 08:20 [place] % (Auto) 4.6 % 12/14/22 08:20 Eos % (Auto) 0.9 % 12/14/22 08:20 Baso % (Auto) 0.3 % 12/14/22 08:20 Neut # (Auto) 6.73 10^3/uL (1.8-8.0) 12/14/22 08:20 Lymph # (Auto) 2.2 10^3/uL (1.5-6.5) 12/14/22 08:20 [place] # (Auto) 0.4 10^3/uL (0.2-0.9) 12/14/22 08:20 Eos # (Auto) 0.1 10^3/uL (0.0-0.8) 12/14/22 08:20 Baso # (Auto) 0.0 10^3/uL (0.0-0.1) 12/14/22 08:20 Nucleated RBC % (auto) 0 % 12/14/22 08:20 Nucleated RBCs # 0.0 /100WBC 12/14/22 08:20 Procedures Performed induction of labor vaginal delivery Vitals Last Vital Signs Temp 97.6 F 12/16/22 05:19 Pulse 68 12/16/22 05:19 Resp 18 12/16/22 05:19 BP 118/71 12/16/22 05:19 Pulse Ox 96 12/16/22 05:19 O2 Del Method Room Air 12/16/22 05:19 Discharge Plan Discharge Patient Disposition: Home Condition: Stable Prescriptions: Continued DHA 200 mg capsule 1 mg PO DAILY bupropion HCl [Wellbutrin SR] 100 mg tablet sustained-release 12 hr 100 mg PO DAILY Qty: 30 3RF Discharge Orders: Discharge Order (Routine); Ordered 12/16/22 Ordered By: Edy Campoverde Referrals: Edy Campoverde MD [Physician] - 01/25/23 1:00 pm Discharge Diet: Usual diet Discharge Activity: Increase activity as tolerated Patient Instructions: Depression (DC), Bleeding (DC), Preeclampsia and Eclampsia After Delivery (GEN), Hemorrhage (DC), OB Discharge Report, OB Food/Drug Interaction Guide, OB Care at Home, Opioid Safety, OB Home Care, OB Vaginal Deliveries - [facility] Discharge Attestations NURSING INFORMATICS CLINICAL ANALYST Time Spent in Discharge Care*: less than 30 min Coding Level of Care Code Acute Code for Chg Fwd Diagnoses Vaginal delivery O80 Time Spent (min) 20
[2022-12-16 12:45] VITALS: BP 140/78; PULSE 86; RESP 16; RESP 18; TEMP 36.4; TEMP 36.6; O2SAT 96
--- NOTE | 2022-12-19 10:58 | ANE.PACU2 ---
Inpatient post-anesthesia follow up: Airway intact: Yes Vital signs: Temperature 97.8 F Pulse Rate 86 Respiratory Rate 16 Blood Pressure 140/78 Pulse Oximetry 96 Oxygen Delivery Me thod Room Air Oxygen Flow Rate Fraction of Inspir ed Oxygen Hydration adequate: Yes Nausea and vomiting: No Pain level: 2 Mental status: Baseline
== END 2022-12-16 13:22 | disposition home or self-care (01) | DRG 807 ==
LOC: OPOB 07:21 → OBGYN 07:21
PROVIDERS: Admitting Provider Obstetrics & Gynecology; PCP Family Medicine; Visit Provider Obstetrics & Gynecology
DX: O80 Encounter for full-term uncomplicated delivery (principal); Z37.0 Single live birth; Z3A.39 39 weeks gestation of pregnancy
CPT/HCPCS: 36415; 51702; 59409; 85025; 85027; J2590; J2795; J7120; J7121

== ENCOUNTER → 2023-04-11 14:06 | Outpatient (BNVA) | payer MEDICAID, SELFPAY | PROVIDERS: PCP Family Medicine; Visit Provider Nurse Practitioner Women's Health | DX: Z34.90 Encounter for supervision of normal pregnancy, unspecified, unspecified trimester (principal); Z32.00 Encounter for pregnancy test, result unknown; Z3A.00 Weeks of gestation of pregnancy not specified | CPT/HCPCS: 81025 ==

== ENCOUNTER → 2023-04-14 11:08 | Outpatient (BNVA) | payer MEDICAID, SELFPAY | PROVIDERS: PCP Family Medicine; Visit Provider Obstetrics & Gynecology | DX: Z34.91 Encounter for supervision of normal pregnancy, unspecified, first trimester (principal); Z3A.01 Less than 8 weeks gestation of pregnancy | CPT/HCPCS: 76817 ==

== ENCOUNTER → 2023-04-27 13:34 | Outpatient (BNVA) | payer MEDICAID, SELFPAY | PROVIDERS: PCP Family Medicine; Visit Provider Obstetrics & Gynecology | DX: Z34.92 Encounter for supervision of normal pregnancy, unspecified, second trimester (principal); Z3A.08 8 weeks gestation of pregnancy | CPT/HCPCS: 76801 ==

== ENCOUNTER → 2023-05-08 11:06 | Outpatient (BNVA) | payer MEDICAID, SELFPAY | PROVIDERS: PCP Family Medicine; Visit Provider Obstetrics & Gynecology | DX: Z34.90 Encounter for supervision of normal pregnancy, unspecified, unspecified trimester (principal); Z3A.01 Less than 8 weeks gestation of pregnancy | CPT/HCPCS: 80307; 84315; 85025; 86592; 86762; 86803; 86850; 86900; 87086; 87340; 87491; 87591; 87806 ==

== ENCOUNTER → 2023-05-23 08:26 | Outpatient (BNVA) | payer MEDICAID, SELFPAY | PROVIDERS: PCP Family Medicine; Visit Provider Obstetrics & Gynecology | DX: Z34.82 Encounter for supervision of other normal pregnancy, second trimester (principal) | CPT/HCPCS: 81000 ==

== ENCOUNTER → 2023-07-18 14:26 | Outpatient (BNVA) | payer MEDICAID, SELFPAY | PROVIDERS: PCP Family Medicine; Visit Provider Obstetrics & Gynecology | DX: Z34.92 Encounter for supervision of normal pregnancy, unspecified, second trimester (principal); Z3A.20 20 weeks gestation of pregnancy | CPT/HCPCS: 76805 ==

== ENCOUNTER → 2023-07-25 07:59 | Outpatient (BNVA) | payer MEDICAID, SELFPAY | PROVIDERS: PCP Family Medicine; Visit Provider Obstetrics & Gynecology | DX: Z34.82 Encounter for supervision of other normal pregnancy, second trimester (principal); Z3A.00 Weeks of gestation of pregnancy not specified | CPT/HCPCS: 81000 ==

== ENCOUNTER → 2023-08-15 15:32 | Outpatient (BNVA) | payer MEDICAID, SELFPAY | PROVIDERS: PCP Family Medicine; Visit Provider Obstetrics & Gynecology | DX: Z34.82 Encounter for supervision of other normal pregnancy, second trimester (principal) | CPT/HCPCS: 76816 ==

== ENCOUNTER → 2023-08-22 09:19 | Outpatient (BNVA) | payer MEDICAID, SELFPAY | PROVIDERS: PCP Family Medicine; Visit Provider Obstetrics & Gynecology | DX: Z34.90 Encounter for supervision of normal pregnancy, unspecified, unspecified trimester (principal); Z3A.00 Weeks of gestation of pregnancy not specified | CPT/HCPCS: 81000 ==

== ENCOUNTER → 2023-09-12 15:40 | Outpatient (BNVA) | payer MEDICAID, SELFPAY | PROVIDERS: PCP Family Medicine; Visit Provider Obstetrics & Gynecology | DX: Z34.80 Encounter for supervision of other normal pregnancy, unspecified trimester (principal) | CPT/HCPCS: 82950 ==

== ENCOUNTER → 2023-10-02 08:16 | Outpatient (BNVA) | payer MEDICAID, SELFPAY | PROVIDERS: PCP Family Medicine; Visit Provider Obstetrics & Gynecology | DX: Z34.80 Encounter for supervision of other normal pregnancy, unspecified trimester (principal) | CPT/HCPCS: 81000 ==

== ENCOUNTER → 2023-10-24 15:00 | Outpatient (BNVA) | payer SELFPAY | PROVIDERS: PCP Family Medicine; Visit Provider Nurse Practitioner Women's Health | DX: Z34.80 Encounter for supervision of other normal pregnancy, unspecified trimester (principal); Z3A.00 Weeks of gestation of pregnancy not specified | CPT/HCPCS: 81000; 87086 ==

== ENCOUNTER → 2023-11-07 08:07 | Outpatient (BNVA) | payer SELFPAY | PROVIDERS: PCP Family Medicine; Visit Provider Obstetrics & Gynecology | DX: Z34.80 Encounter for supervision of other normal pregnancy, unspecified trimester (principal); Z3A.00 Weeks of gestation of pregnancy not specified | CPT/HCPCS: 81000 ==

== ENCOUNTER → 2023-11-21 08:11 | Outpatient (BNVA) | payer SELFPAY | PROVIDERS: PCP Family Medicine; Visit Provider Obstetrics & Gynecology | DX: Z34.80 Encounter for supervision of other normal pregnancy, unspecified trimester (principal); Z3A.00 Weeks of gestation of pregnancy not specified | CPT/HCPCS: 81000; 87081 ==

== ENCOUNTER → 2023-11-28 08:14 | Outpatient (BNVA) | payer MEDICAID, SELFPAY | PROVIDERS: PCP Family Medicine; Visit Provider Obstetrics & Gynecology | DX: Z34.80 Encounter for supervision of other normal pregnancy, unspecified trimester (principal); Z3A.00 Weeks of gestation of pregnancy not specified | CPT/HCPCS: 81000 ==

== ENCOUNTER 2023-11-29 21:02 | Inpatient (IN) | payer MEDICAID, SELFPAY ==
[2023-11-29] VITALS (12 sets, daily range): BP systolic 112–173; BP diastolic 68–106; PULSE 57–98; TEMP 29.6–30; BMI 40.5
--- NOTE | 2023-11-29 21:20 | PM.OBGYHP ---
Providers/Chief Complaint Admitting Physician: Edy Campoverde MD Primary [employer] E[employer]OMIST: Edy Campoverde MD Primary Care Provider: Sharif Sumner MD Chief Complaint: contractions HPI [employer]IST History of Present Illness 23 y.o. EDC December 03, 2023 At 39 w 3 d No complications Presents to L&D c/o painful uterine contractions No bleeding, fluid leakage + movements POBHx: x three, uncomplicated Present Details : 4 Para: 3 Medications/Allergies Home Medications Medication Instructions Recorded Confirmed Last Taken Type bupropion HCl 150 mg tablet,12 hr 150 mg PO DAILY #30 tabs 10/02/23 11/28/23 Unknown Rx sustained-release (Wellbutrin SR) PNV 153-FA 400 mcg-om3 35 mg-dha tab PO DAILY 10/24/23 11/28/23 Unknown History 25 mg-epa 5 mg-fish oil chew tablet ( Gummies) Allergies Allergy/AdvReac Type Severity Reaction Status Date / Time No Known Allergies Allergy Verified 11/28/23 11:20 PFSH [employer]IST PFSH: Medical History Supervision of other normal Elective induction of labor planned Surgical History Status post laparoscopic cholecystectomy (10/07/20) Family History Grandmother Ovarian cancer maternal Mother Thyroid disease Stroke TIA - unsure Father Hypertension Grandfather Diabetes maternal Denies family history of Colon cancer Heart disease Hyperlipidemia Breast cancer Social History Smoking and tobacco/nicotine status: current every day tobacco/nicotine user History History History 4 Term 3 0 Miscarriages/Ectopic 0 Living Children 3 Care 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 VS normal General awake, alert, appropriate Lungs: clear Cor: RRR FH 38 cm, cephalic Cervix: 7 cm / -1 station Ext: no edema External monitor: regular [facility] heart tracing good variability, + accelerations Data 11/29/23 21:15 Results Labs OB ([facility]): Obstetrics US 08/15/23 Blood Type O Positive 11/29/23 Antibody Screen Negative 11/29/23 Hct 38.3 % (36-47) 11/29/23 Hgb 12.30 g/dL (11.27-16.99) 11/29/23 Rho(D) Type Rh positive 11/29/23 Plt Count 301 10^3/cmm (157-399) 11/29/23 Hep Bs Antigen Non-reactive (Nonreactive) 05/08/23 Hep Bs Antibody 6.5 (11.5-1000) L 08/19/20 Hepatitis C Antibody Non-reactive (Nonreactive) 05/08/23 Rubella IgG Antibody 55.4 IU/mL (0.0-10.0) H 05/08/23 RPR Nonreactive (Nonreactive) 05/08/23 HIV 1&2 Ab & HIV 1 Ag Non-reactive (Non-Reactiv) 05/08/23 TSH 0.55 uIU/mL (0.27-4.20) 12/06/21 Free T4 1.34 ng/dL (0.93-1.60) 12/06/21 C.trachomatis RNA (TMA) Not detected (NOT DETECTED) 05/08/23 N.gonorrhoeae RNA (TMA) Not detected (NOT DETECTED) 05/08/23 T. vaginalis Amp RNA Not detected (NOT DETECTED) 05/08/23 Chlamydia/GC Comment See note 05/08/23 Glucose 1 Hr 50 gm 115 mg/dL (85-140) 09/12/23 Gest Glucose Tolerance 89 mg/dL 09/14/22 VZV IgG Antibody 352.30 index 08/19/20 HCG, Qual Positive (Negative) H 04/11/23 Urine Opiates Screen Negative ng/mL (Negative) 05/08/23 Ur Barbiturates Screen Negative ng/mL (Negative) 05/08/23 Ur Phencyclidine Scrn Negative ng/mL (Negative) 05/08/23 Ur Amphetamines Screen Negative ng/mL (Negative) 05/08/23 U Benzodiazepines Scrn Negative ng/mL (Negative) 05/08/23 Urine Cocaine Screen Negative ng/mL (Negative) 05/08/23 U Marijuana (THC) Screen Negative ng/mL (Negative) 05/08/23 Micro Urine Specimen 10/24/23 A&P Assessment and plan (1) Active labor: 39 w 3 d Active labor Fetus reassuring Plan expectant management Attestations Medical Necessity Statement*: patient at 39 w 3 d, with active labor Coding Level of Care Code Acute Code for Chg Fwd Diagnoses Active labor Time Spent (min) 30
[2023-11-29] MEDS: lactated ringers 1,000 ML 999 ML IV (21:30)
[2023-11-29 21:40] LABS: Basophils % 0.2 %; Eosinophils # 0.1 10^3/uL (0.0-0.8); Eosinophils % 0.5 %; Hematocrit 38.3 % (36-47); Lymphocytes # 2.9 10^3/uL (0.8-4.8); Lymphocytes % 23.3 %; Mean Corpuscular HGB Conc 32.1 g/dL (30-55); Mean Corpuscular Hemoglobin 23.2 pg (27-33); Mean Corpuscular Volume 72.3 fl (85-98); Mean Platelet Volume 10.3 fL (7.4-10.4); Monocytes # 0.6 10^3/uL (0.2-0.9); Monocytes % 4.6 %; Neutrophils # 8.75 10^3/uL (1.8-7.7); Neutrophils % 70.8 %; Nucleated Red Blood Cells % 0 %; Platelet Count 301 10^3/cmm (157-399); Red Cell Distribution Width 14.5 % (12.1-15.1); White Blood Count 12.36 10^3/uL (3.29-11.43)
[2023-11-29] MEDS: oxytocin 30 UNIT/500 ML BAG 600 UNIT IV (22:06)
--- NOTE | 2023-11-29 22:10 | PM.DELIVERY ---
Delivery Note: Date of delivery: November 29, 2023 Pre-delivery diagnoses: 39 w 3 d active labor Post-delivery diagnoses: 39 w 3 d active labor vaginal delivery Procedure: vaginal delivery Op report anesthesia: None Delivering Physician: Edy Campoverde MD Estimated blood loss (mL): 300 Findings: , vigorous infant No meconium Cord gases and blood obtained Normal placenta and cord No episiotomy / lacerations EBL: 300 cc No complications Pre-Delivery Course: normal labor course Delivery: vaginal Post-Delivery Status: good History History History 4 Term 3 0 Miscarriages/Ectopic 0 Living Children 3 Coding Level of Care Code Acute Code for Chg Fwd Time Spent (min) 60
[2023-11-30] VITALS (9 sets, daily range): BP systolic 105–124; BP diastolic 69–75; PULSE 55–87; RESP 14–20; TEMP 36.5–36.9; O2SAT 96–98
[2023-11-30] MEDS: HYDROcodone-acetaminophen 5-325 mg Tablet PO ×2 (00:01→06:14)
[2023-11-30 01:35] LABS: Glucose Point of Care 65 mg/dL (70-110)
[2023-11-30] MEDS: benzocaine-menthol 78 gm Canister 1 SPRAY TOPICAL (06:15)
[2023-11-30] MEDS: docusate sodium 100 mg Capsule PO ×2 (08:09→20:33)
[2023-11-30] MEDS: ibuprofen 800 mg tablet PO ×3 (08:09→20:33)
[2023-11-30] MEDS: PRENATAL VIT NO.130/IRON/FOLIC 1 EACH TABLET PO (08:09)
[2023-11-30 10:31] LABS: Hematocrit 37.9 % (36-47); Mean Corpuscular HGB Conc 30.3 g/dL (30-55); Mean Corpuscular Hemoglobin 22.5 pg (27-33); Mean Platelet Volume 10.4 fL (7.4-10.4); Platelet Count 294 10^3/cmm (157-399); Red Blood Count 5.12 10^6/uL (3.85-5.65); Red Cell Distribution Width 14.6 % (12.1-15.1); White Blood Count 13.77 10^3/uL (3.29-11.43)
[2023-12-01 04:00] VITALS: BP 108/69; PULSE 48; RESP 18; TEMP 36.4; O2SAT 98
[2023-12-01] MEDS: ibuprofen 800 mg tablet PO (09:14)
[2023-12-01] MEDS: PRENATAL VIT NO.130/IRON/FOLIC 1 EACH TABLET PO (09:14)
[2023-12-01] MEDS: docusate sodium 100 mg Capsule PO (09:14)
[2023-12-01 09:20] VITALS: BP 105/62; PULSE 62; RESP 17
[2023-12-01 13:20] VITALS: BP 102/67; PULSE 68; RESP 17; TEMP 36.7; O2SAT 97
[2023-12-01 13:30] VITALS: BP 105/70; PULSE 69; RESP 17; TEMP 36.7; O2SAT 97
== END 2023-12-01 13:35 | disposition home or self-care (01) | DRG 807 ==
LOC: OPOB 21:03 → OBGYN 21:03
PROVIDERS: Admitting Provider Obstetrics & Gynecology; PCP Family Medicine; Visit Provider Obstetrics & Gynecology
DX: O99.344 Other mental disorders complicating childbirth (principal); Z37.0 Single live birth; O99.334 Smoking (tobacco) complicating childbirth; F17.200 Nicotine dependence, unspecified, uncomplicated; Z3A.39 39 weeks gestation of pregnancy; F41.9 Anxiety disorder, unspecified
CPT/HCPCS: 36415; 36416; 59025; 59409; 82962; 85025; 85027; 86850; 86900; 99211; J2590; J7120

== ENCOUNTER → 2024-01-31 13:46 | Outpatient (BNVA) | payer MEDICAID, SELFPAY | PROVIDERS: PCP Family Medicine; Visit Provider Obstetrics & Gynecology | DX: Z30.9 Encounter for contraceptive management, unspecified (principal) | CPT/HCPCS: 81025 ==

== ENCOUNTER 2025-01-21 15:46 | Outpatient (CLI) | payer MEDICAID, SELFPAY ==
--- NOTE | 2025-01-21 15:45 | US_ITS ---
WS: [id number] US pelv w/transvag [id number] HISTORY: IUD Position COMPARISON: 01/04/2022 Uterus: 9.1 cm x 4.8 cm x 4.5 cm. Normal size anteverted uterus. No fibroid or mass. Endometrium: 0.3 cm. Tiny amount of fluid within the endometrial canal. No IUD is identified. Right ovary: 4.0 cm x 3.0 cm x 2.3 cm. Normal size and vascularity, no cystic or solid masses. Several small peripheral follicles. Left ovary: 3.4 cm x 2.8 cm x 2.3 cm. Normal size and vascularity, no cystic or solid masses. Several small peripheral follicles. No free fluid in the cul-de-sac. US/US pelv w/transvag [id number] IMPRESSION: 1. No IUD identified along the endometrial canal. 2. Normal uterus. 3. Normal-appearing ovaries.
== END 2025-01-21 15:47 | disposition home or self-care (01) ==
LOC: RAD 15:46
PROVIDERS: PCP Family Medicine; Visit Provider Obstetrics & Gynecology
DX: Z30.431 Encounter for routine checking of intrauterine contraceptive device (principal)
CPT/HCPCS: 76830; 76856